=== PATIENT | female | born 1980 | race Caucasian/White ===

== ENCOUNTER 2018-11-08 20:12 | Inpatient (IN) | payer MEDICAID ==
[~2018-11-08] VITALS: Ht 157.5 cm; Wt 58.1 kg
[2018-11-08 20:21] VITALS: BP 118/72; PULSE 82; RESP 19; Ht 157.5 cm; Wt 58.1 kg
[2018-11-08] MEDS ORDERED: PREN1TAB13 PO (20:25)
[2018-11-08] MEDS ORDERED: LACTATED RINGER'S 1,000 ML IV PRN (20:39)
[2018-11-08] MEDS ORDERED: METHYLERGONOVINE 0.2 MG INJ IM PRN (21:00)
[2018-11-08] MEDS ORDERED: OXYTOCIN 30 UNITS/LR 500 ML IV PRN (21:00)
[2018-11-08] MEDS ORDERED: BUTORPHANOL 2 MG INJ IV PRN ×2 (21:00)
[2018-11-08] MEDS ORDERED: CARBOPROST 250 MCG INJ IM PRN (21:00)
[2018-11-08] MEDS ORDERED: MINERAL OIL LIGHT 10 ML VIAL TOP PRN (21:00)
[2018-11-08] MEDS ORDERED: MISOPROSTOL 200 MCG TAB PR PRN (21:00)
[2018-11-08] MEDS ORDERED: IBUPROFEN 600 MG TAB PO PRN (21:00)
[2018-11-08] MEDS ORDERED: LIDOCAINE 1% (MPF) 30 ML INJ INJ PRN (21:00)
[2018-11-08] MEDS ORDERED: OXYTOCIN 30 UNITS/LR 500 ML IV SCH ×3 (21:00→23:00)
[2018-11-08] MEDS: LACTATED RINGER'S 1,000 ML IV SCH ×2 (21:06→22:17)
--- NOTE | 2018-11-08 21:17 | TRIAGE ---
OB Triage Datetime Report Generated by CPN: 11/08/2018 21:17 Datetime: 11/08/2018 20:43 Stage of : Labor Labor Evaluation Frequency: 4-5 Monitor Mode: External Duration (sec)2399: 90-120 Quality: Moderate Pattern: Normal: <= 5 Contractions in 10 Minutes Resting Tone [place]: Relaxed Heart Rate FHR Baseline Rate: 145 Monitor Mode: External US Variability: Moderate 6-25 bpm Accelerations: 15X15 Decelerations: Early Category: Category I Comments: monitor off, pt transferred to [facility] 5 ambulatory, accompanied by Olivia Malini RN Datetime: 11/08/2018 20:35 Vaginal Exam Dilatation (cms): 4.0 Effacement (%): 60 Station: -2 Exam By: TIO CUNHA Membrane Status: Intact Vaginal Bleeding: Normal Show Cervix, Consistency: Soft Cervix, Position: Midposition Presentation 'A': Cephalic Datetime: 11/08/2018 20:30 Time of Arrival: 11/08/2018 20:06 EGA: 38.4 Arrived By: Ambulatory Arrived From: Home Chief Complaint: UC'S SINCE 1400 Movement: Present Contractions: Regular Time Contractions Began: 11/08/2018 14:00 Contractions: Q4-5MIN Rupture of Membranes: Denies Vaginal Bleeding: None Vaginal Discharge: Denies Recent Sexual Intercouse: Denies Abdominal Trauma: Not Applicable Patient Complaints: Contractions Time Provider Notified: 11/08/2018 20:39 Provider Notified: ENDY Initial Plan: VS, EFM, SVE, CALL OB Datetime: 11/08/2018 20:21 Maternal Assessment Temperature Route: Oral Pain Assessment Pain Scale: 6 Pain Presence: Intermittent Pain Type: Contraction Pain Location: Abdomen Pain Relief Measures: Comfort Measures Datetime: 11/08/2018 20:20 Stage of : OB Triage Monitor Mode: External Monitor Mode: External US Comments: MONITORS APPLIED, FHT AUDIBLE AT 145BPM
--- NOTE | 2018-11-08 21:23 | TRIAGE ---
OB Triage Datetime Report Generated by CPN: 11/08/2018 21:23 Datetime: 11/08/2018 20:46 Time of Arrival: 11/08/2018 21:00 EGA: 38.4 Arrived By: Ambulatory Datetime: 11/08/2018 20:30 EGA: 38.4 Datetime: 11/08/2018 20:21 Assessment Type: Triage Level of Consciousness: Fully Conscious DTR's/Clonus: DTRs 2+; No Clonus Headache: Denies Blurred Vision: No Respiratory Effort: Unlabored; Regular Rhythm; Equal Expansion Breath Sounds, Left: Clear and Equal Breath Sounds, Right: Clear and Equal Nausea/Vomiting: Denies RUQ Epigastric Pain: Denies Lower Extremities Edema: None Degree: None Upper Extremities Edema: None Degree: None Facial Edema: None History of Falling: (0) No Secondary Diagnosis: (0) No Ambulatory Aid: (0) Bedrest/Nurse Assist IV Therapy: (0) No Gait: (0) Normal/Bedrest/Immobile Mental Status: (0) Oriented to Own Ability Fall Score: 0 Fall Risk Score Definition: No Risk: No action required
--- NOTE | 2018-11-08 21:52 | PREAC ---
Date/Time of Note Date/Time of Note DATE: 11/08/18 TIME: 21:51 Anesthesia Eval and Record Evaluation Time Pre-Procedure Interview DATE: 11/08/18 TIME: 21:51 Age 38 Sex female NPO: 8 hrs Preoperative diagnosis IUP Planned procedure L&D Epidural Past Medical History Past Medical History: None Surgery & Anesthesia Issues No known issue Meds Anticoagulation: No Beta Petrona within 24 hr: No Reason Beta Petrona not given: Pt. not on B-Petrona Reported Medications Pnv95/Ferrous Fumarate/FA ( Vitamins Tablet) 1 Each Tablet, 1 EACH PO, TAB 11/08/18 Current Medications Lactated Ringer's 1,000 ml @ 125 mls/hr Q8H IV Last administered on 11/08/18at 21:06; Admin Dose 125 MLS/HR; Start 11/08/18 at 20:39 Butorphanol Tartrate (Stadol) 1 mg Q2H PRN IV .PAIN SCALE 1-5; Start 11/08/18 at 21:00 Butorphanol Tartrate (Stadol) 2 mg Q2H PRN IV .PAIN SCALE 6-10; Start 11/08/18 at 21:00 Lidocaine (Xylocaine 1% (Mpf)) 30 ml ONCE PRN INJ .EPISIOTOMY; Start 11/08/18 at 21:00 Oxytocin/Lactated Ringer's 500 ml @ 500 mls/hr ONCE POST IV ; Start 11/08/18 at 21:00 Oxytocin/Lactated Ringer's 500 ml @ 125 mls/hr POST IV ; Start 11/08/18 at 21:00 Ibuprofen (Motrin) 600 mg ONCE PRN PO .PAIN 1-5; Start 11/08/18 at 21:00 Lactated Ringer's 1,000 ml @ 2,000 mls/hr Q30M PRN IV .ANESTHESIA; Start 11/08/18 at 20:39 Oxytocin/Lactated Ringer's 500 ml @ 0 mls/hr ONCE PRN IV .VAGINAL BLEEDING; Start 11/08/18 at 21:00 Methylergonovine Maleate (Methergine) 0.2 mg ONCE PRN IM .VAGINAL BLEEDING; Start 11/08/18 at 21:00 Carboprost Tromethamine (Hemabate) 250 mcg ONCE PRN IM .VAGINAL BLEEDING; Start 11/08/18 at 21:00 Misoprostol (Cytotec) 1,000 mcg ONCE PRN [place] .VAGINAL BLEEDING; Start 11/08/18 at 21:00 Mineral Oil (Muri-Lube) 10 ml PRN PRN TOP DELIVERY LUBRICATION; Start 11/08/18 at 21:00 Meds reviewed: Yes Allergies Coded Allergies: No Known Drug Allergy (Verified Allergy, Unknown, 11/08/18) Allergies Reviewed: Yes Labs/Studies Labs Reviewed: Reviewed by anesthesiologist Result Diagram: 11/08/18 2100 Laboratory Tests 11/08/18 21:00 test: Positive Studies: ECG Pre-procedure Exam Last vitals Vital Signs Date Temp Pulse Resp B/P (MAP) Pulse Ox O2 O2 Flow FiO2 Time Delivery Rate 11/08/18 97.9 82 19 118/72 Room Air 20:21 (87) Airway: Adequate mouth opening, Adequate thyromental dist Mallampati: Mallampati II Teeth: Normal Lung: Normal Heart: Normal ASA Physical Status ASA physical status: 2 Emergency: None Planned Anesthetic Neuraxial: Epidural Planned Pain Management Epidural Pre-operative Attestations Prior to commencing anesthesia and surgery, the patient was re-evaluated, there was verification of: *The patient's identity *The results of appropriate recent lab work and preoperative vital signs *The above evaluation not changing prior to induction *Anesthetic plan, risk benefits, alternative and complications discussed with patient/family; questions answered; patient/family understands, accepts and wis hes to proceed. VENUS GUNTER MD November 08, 2018 21:52
[2018-11-08] MEDS ORDERED: FENTAnyl 2MCG/ML-ROPIV 0.2% 100 ML ONE (21:54)
[2018-11-08] MEDS ORDERED: ONDANSETRON 4 MG INJ IV PRN (22:00)
[2018-11-08] MEDS ORDERED: NALOXONE (0.4 MG/ML) INJ IV PRN (22:00)
[2018-11-08] MEDS ORDERED: FENTAnyl 2MCG/ML-ROPIV 0.2% 100 ML BAG EPI SCH (22:00)
[2018-11-08] MEDS ORDERED: DIPHENHYDRAMINE 50 MG INJ IV PRN (22:00)
[2018-11-09] MEDS ORDERED: OXYTOCIN 30 UNITS/LR 500 ML IV SCH (01:17)
[2018-11-09] MEDS ORDERED: LACTATED RINGER'S 1,000 ML IV* SCH (01:17)
[2018-11-09] MEDS ORDERED: LANOLIN HPA 1 PKT TOP PRN (01:30)
[2018-11-09] MEDS ORDERED: WITCH HAZEL/GLYCERIN PAD PR PRN (01:30)
[2018-11-09] MEDS ORDERED: BENZOCAINE 20% 56 ML SPRAY TOP PRN (01:30)
[2018-11-09] MEDS ORDERED: ACETAMINOPHEN 325 MG TAB PO PRN ×2 (01:30)
[2018-11-09] MEDS ORDERED: ONDANSETRON 4 MG INJ IV PRN (01:30)
[2018-11-09] MEDS ORDERED: OXYTOCIN 30 UNITS/LR 500 ML IV PRN (01:30)
[2018-11-09] MEDS ORDERED: SENNA/DOCUSATE NA (8.6MG/50MG) TAB PO PRN (01:30)
[2018-11-09] MEDS ORDERED: MAGNESIUM HYDROXIDE 30ML CUP PO PRN (01:30)
[2018-11-09] MEDS ORDERED: DIBUCAINE 1% 30 GM OINT TOP PRN (01:30)
[2018-11-09] MEDS ORDERED: CARBOPROST 250 MCG INJ IM PRN (01:30)
[2018-11-09] MEDS ORDERED: MISOPROSTOL 200 MCG TAB PR PRN (01:30)
[2018-11-09] MEDS ORDERED: METHYLERGONOVINE 0.2 MG INJ IM PRN (01:30)
[2018-11-09 02:30] VITALS: BP 109/64; PULSE 72; RESP 19
[2018-11-09 04:00] VITALS: BP 104/69; PULSE 79; RESP 19
[2018-11-09] MEDS: IBUPROFEN 600 MG TAB PO PRN ×2 (06:35→17:10)
[2018-11-09 08:00] VITALS: BP 110/69; PULSE 73; RESP 18
--- NOTE | 2018-11-09 10:51 | PN ---
Date/Time of Note Date/Time of Note DATE: 11/09/18 TIME: 10:49 OB Subjective Subjective Subjective PPD# 1 Patient is doing well. She denies nausea, vomiting, shortness of breath, chest pain, headache. She has been ambulating without difficulty, tolerating regular diet. Pain is well controlled on current medications OB Objective Objective Objective Vital Signs Date Temp Pulse Resp B/P (MAP) Pulse Ox O2 O2 Flow FiO2 Time Delivery Rate 11/09/18 98.7 79 19 104/69 Room Air 04:00 (81) General: AAO X 3, comfortable, NAD, appropriate mood and affect. ABD: +BS. Soft, non-tender. Uterus 2 cm below umbilicus Flank: No CVA tenderness (B/L) LE: Mild edema. No clubbing, cyanosis, thigh or calf tenderness (B/L). Homans 'sign is negative OB Assessment/Plan Other plan: years old 5 para 0-4-0-1 4 s/p normal vaginal delivery at 38 weeks. PPD#1 - AF, VSS - Baby is doing well, at bed side. She is bonding well - Contraception methods with R/B/A/FR discussed - Continue care STEPHANIE CHURCH November 09, 2018 10:51
--- NOTE | 2018-11-09 11:15 | LDN ---
Date/Time of Note Date/Time of Note DATE: 11/09/18 TIME: 11:12 Delivery Summary Placenta Delivered: Spontaneously (Vacuum-assisted delivery) Meconium: none Episiotomy: Yes Indication for episiotomy Category 2 heart rate tracing Laceration repair: Medial episiotomy repaired with 2-0 Vicryl suture Anesthesia type: Epidural Estimated blood loss: 200 Sponge & Needle done & correct: Yes All needle counts correct: Yes Any foreign bodies felt in the: No Delivery Information Sex Sex: female Apgars 1 Minute: 8 5 Minute: 9 Suctioning Nose & mouth suctioned at prince: Yes Delee suction performed: No Umbilical Cord Umbilical cord with: 3 Vessels Cord presentations: nuchal cord (X1 loose manually reduced) Cord Blood was obtained: Yes Mother & Baby Disposition Disposition Baby's weight 6 pounds 8 ounces/ 2935 g Mom & Baby to Maternity; Good: Yes Baby to NICU: Yes Copies To: CC: STEPHANIE CHURCH BAHAREH MD November 09, 2018 11:15
--- NOTE | 2018-11-09 11:20 | HP ---
Date/Time of Note Date/Time of Note DATE: 11/09/18 TIME: 11:20 OB - History Hx of Present Free Text/Dictation Patient is a 38-year-old 5 para 4 at 38 weeks and 4 days of gestation with estimated date of delivery November 18, 2018 She presented in active labor with regular contractions Patient reported positive movement, denies any vaginal bleeding or leaking fluid GBS status is negative Estimated Due Date: November 18, 2018 : 5 Para: 4 Past Family/Social History * Past Medical, Surgical, Family and Obstetric Histories reviewed from chart. OB Admission Exam Vital Signs Vital Signs Vital Signs Date Temp Pulse Resp B/P (MAP) Pulse Ox O2 O2 Flow FiO2 Time Delivery Rate 11/09/18 98.7 79 19 104/69 Room Air 04:00 (81) Physical Exam HEENT: WNL Heart: Rhythm Normal Lungs: Clear, Equal Abdomen: WNL Extremities: Normal Reflexes: Normal Cervical Dilatation: 4cm Effacement: 75% Station: -1 Membranes: Intact Heart Rate: 140's Accelerations: Accelerations Present Decelerations: No Decelerations Varibility: Moderate Contractions on Admission: < 5 Minutes Apart Intensity: Moderate Last 72 hours Lab Results CBC & BMP 11/08/18 21:00 11/09/18 08:25 PROCEDURE: US OB. CLINICAL INDICATION: Size and dates TECHNIQUE: Multiple sonographic images of the pelvis and gravid uterus were obtained. The images were reviewed on a PACS workstation. COMPARISON: No prior studies are available for comparison. FINDINGS: There is a single live intrauterine gestation. Cardiac activity is present with 150 beats per minute. There is a vertex presentation. The placenta is posterior fundal. There is no evidence of placental abruption. EVE = 15.6 cm. Measurements: BPD = 8.7 cm, 35 weeks and 0 days HC = 32.1 cm, 36 weeks and 2 days AC = 34.1 cm, 38 weeks and 0 days FL = 7.1 cm, 36 weeks and 3 days Gestational Age: AUA estimated gestational age: 36 weeks 3 days LMP estimated gestational age: 38 weeks 4 days AUA estimated date of delivery: 12/03/18 The EFW = 3107 g, 28%ile based on LMP age. RPTAT: AA IMPRESSION: Single live intrauterine gestation of 36 weeks 3 days by ultrasound criteria. .Eric Cevallos MD, MD Date Time Electronically viewed and signed by .Eric Cevallos MD, MD on 11/08/2018 21:36 .S/ CC: MICHEAL SCHUMACHER MD [id number] PROCEDURE: US OB biophysical profile. CLINICAL INDICATION: LABOR, WELLBEING TECHNIQUE: Multiple sonographic images of the pelvis were obtained. The images were reviewed on a PACS workstation. COMPARISON: 11/08/2018 FINDINGS: There is a live intrauterine gestation. There is a normal amount of amniotic fluid with an EVE = 15.6 cm. Cardiac activity is present with 150 beats per minute. There is a vertex presentation. The placenta is fundal. Biophysical profile: movement 2/2 tone 2/2. breathing 2/2 EVE 2/2 Total 8/8 IMPRESSION: Normal biophysical profile. RPTAT:HCLE Physician Cliff Date Time Electronically viewed and signed by Physician Cliff on 11/08/2018 23:04 cE/ CC: MICHEAL SCHUMACHER MD [phone] OB Assessment/Plan Reason for admission: active labor Plan: Expectant Management Other plan: Admit to labor and delivery Pain meds as needed Copies To: CC: STEPHANIE CHURCH ; MICHEAL SCHUMACHER MD November 09, 2018 11:20
[2018-11-09 12:00] VITALS: BP 110/70; PULSE 77; RESP 18
[2018-11-09] MEDS: LACTATED RINGER'S 1,000 ML IV SCH (12:39)
[2018-11-09 15:40] VITALS: BP 106/62; PULSE 71; RESP 20
[2018-11-09 20:20] VITALS: BP 90/54; PULSE 76; RESP 19
[2018-11-10 04:00] VITALS: BP 96/59; PULSE 77; RESP 19
[2018-11-10 07:47] VITALS: BP 97/49; PULSE 75; RESP 18
[2018-11-10] MEDS ORDERED: PROVENTIL HFA 6.7GM INHALER ONE (07:59)
--- NOTE | 2018-11-10 16:09 | DS ---
Date/Time of Note Date/Time of Note DATE: 11/10/18 TIME: 16:07 Obstetrical Discharge Record Final Diagnosis Final Diagnosis: Term delivered Other Final Diagnosis day #2 Status post Patient stable and afebrile Vital signs stable Hematology - 72 Hrs Test 11/08/18 21:00 11/09/18 08:25 Hematocrit 40.0 % (37.0-47.0) 38.8 % (37.0-47.0) Hemoglobin 13.6 g/dl (12.0-16.0) 13.2 g/dl (12.0-16.0) Mean Corpuscular 30.4 pg (29.0-33.0) 30.1 pg (29.0-33.0) Hemoglobin Mean Corpuscular 34.0 g/dl (32.0-37.0) 34.0 g/dl (32.0-37.0) Hemoglobin Concent Mean Corpuscular Volume 89.3 fl (82.0-101.0) 88.6 fl (82.0-101.0) Mean Platelet Volume 12.2 fl (7.4-10.4) #H 12.1 fl (7.4-10.4) H Platelet Count 175 10^3/UL (140-415) 164 10^3/UL (140-415) Red Blood Count 4.48 10^6/ul (4.20-5.40) 4.38 10^6/ul (4.20-5.40) Red Cell Distribution 13.3 % (11.5-14.5) 13.4 % (11.5-14.5) Width White Blood Count 7.8 10^3/ul (4.8-10.8) # 11.9 10^3/ul (4.8-10.8) #H Abdomen soft, fundus firm Perineum intact Extremities nontender Assessment and plan Patient stable and doing well Plan to discharge home Prescription for Motrin and Colace was given Patient instructed to follow-up with her own [facility]ATTR[facility] RENOVATOR in 2 and 6 weeks Vaginal Delivery Obstetrical Delivery: Episiotomy, Repaired, Vacuum Extraction Condition on Discharge Physical Assessment Last Vitals: VS - Last 72 Hours, by Label Date Temp Pulse Resp B/P (MAP) Pulse Ox O2 O2 Flow FiO2 Time Delivery Rate 11/10/18 98.0 75 18 97/49 (65) Room Air 07:47 11/10/18 97.9 77 19 96/59 (71) 04:00 11/09/18 98.1 76 19 90/54 (66) 20:20 11/09/18 98.4 71 20 106/62 15:40 (77) 11/09/18 97.4 77 18 110/70 Room Air 12:00 (83) 11/09/18 98.0 73 18 110/69 Room Air 08:00 (83) 11/09/18 98.7 79 19 104/69 Room Air 04:00 (81) 11/09/18 98.0 72 19 109/64 Room Air 02:30 (79) 11/08/18 97.9 82 19 118/72 Room Air 20:21 (87) Voiding: Yes Bowel Movement: Yes Breast: Soft, non-tender Fundus: Firm Calf Tenderness: No Patient Condition: Good Copies To: CC: STEPHANIE CHURCH BAHAREH MD November 10, 2018 16:09
--- NOTE | 2018-11-11 11:14 | PAC ---
Date/Time of Note Date/Time of Note DATE: 11/11/18 TIME: 11:13 Post-Anesthesia Notes Post-Anesthesia Note Last documented vital signs Vital Signs Date Temp Pulse Resp B/P (MAP) Pulse Ox O2 O2 Flow FiO2 Time Delivery Rate 11/10/18 98.0 75 18 97/49 (65) Room Air 07:47 Activity: WNL Respiratory function: WNL Cardiovascular function: WNL Mental status: Baseline Pain reasonably controlled: Yes Hydration appropriate: Yes Nausea/Vomiting absent: Yes Comments BP:120/56, P:78, Spo2:100%, T:98,9 VENUS GUNTER MD November 11, 2018 11:14
--- NOTE | 2018-11-11 15:37 | DELSUM ---
Delivery Summary A-C Datetime Report Generated by CPN: 11/11/2018 15:37 DELIVERY PERSONNEL [employer] Operator: Arias, Olivia MATERNAL INFORMATION Delivery Anesthesia: Epidural Medications in Delivery: 30 UNITS OF PITOCIN Delivery QBL (ml): 200 Placenta Cultured: No Maternal Complications: None LABOR SUMMARY EDC: 11/18/2018 00:00 No. Babies in Womb: 1 Attempted: No Labor Anesthesia: Epidural LABOR INFORMATION Onset of Labor: 11/08/2018 14:00 Complete Dilatation: 11/08/2018 22:40 Oxytocin: Augmentation Group B Beta Strep: Negative Steroids Given: None Reason Steroids Not Administered: Not Applicable MEMBRANES Membranes Rupture Method: Artificial Rupture of Membranes: 11/08/2018 22:30 Length of Rupture (hr): 1.03 Amniotic Fluid Color: Clear Amniotic Fluid Amount: Moderate Amniotic Fluid Odor: None STAGES OF LABOR Stage 1 hr: 8 Stage 1 min: 40 Stage 2 hr: 0 Stage 2 min: 52 Stage 3 hr: 0 Stage 3 min: 0 Total Time in Labor hr: 9 Total Time in Labor min: 32 VAGINAL DELIVERY Episiotomy: Median Laceration Repair: Not Applicable Initial Vag Sponge Count: 10 Final Vag Sponge Count: 10 Initial Vag Sharps Count: 1+2 Final Vag Sharps Count: 3 Sponge Count Correct: Yes; Vaginal Sweep Performed Sharps Count Correct: Yes BABY A INFORMATION Infant Delivery Date/Time: 11/08/2018 23:32 Method of Delivery: Vaginal Born in Route : No : N/A Forceps: N/A Vacuum Extraction: Successful Shoulder Dystocia : No ASSISTED DELIVERY BABY A Indication for Assisted Delivery: DECELS, BABY NOT DECENDING Station Vacuum/Forcep Apply: 0 Position Vacuum/Forcep Apply: Left Occipital Posterior Vacuum Number of Pulls: 2 Vacuum Number of PopOffs: 0 Reduce Pressure btwn Ctx: Yes Total Time Vacuum Applied: 20 SHOULDER DYSTOCIA BABY A Infant Delivery Date/Time: 11/08/2018 23:32 PRESENTATION/POSITION BABY A Presentation: Cephalic Cephalic Presentation: Vertex Vertex Position: Left Occipital Posterior Breech Presentation: N/A PLACENTA INFORMATION BABY A Placenta Delivery Time : 11/08/2018 23:32 Placenta Method of Delivery: Spontaneous Placenta Status: Delivered SCORES BABY A Heart Rate 1 min: >100 bpm Resp Effort 1 min: Good Cry Reflex Irritability 1 min: Cough/Sneeze/Pulls Away Muscle Tone 1 min: Some Flexion of Extrem Color 1 min: Body Hecker, Extremit Blue Resuscitation Effort 1 min: Tactile Stimulation; Oxygen; PPV/NCPAP SCORE 1 MIN: 8 Heart Rate 5 min: >100 bpm Resp Effort 5 min: Good Cry Reflex Irritability 5 min: Cough/Sneeze/Pulls Away Muscle Tone 5 min: Active Motion Color 5 min: Body Hecker, Extremit Blue Resuscitation Effort 5 min: Tactile Stimulation; Oxygen SCORE 5 MIN: 9 INFANT INFORMATION BABY A Gestational Age at Delivery: 38.4 Gestational Status: Early Term- 37- 38.6 Weeks Infant Outcome : Liveborn Infant Condition : Stable Sex: Female IDENTIFICATION/MEDS BABY A ID Band Number: [id number] ID Band Location: Right Leg; Left Arm Sensor Applied: Yes Sensor Number: [id number] Sensor Location : Cord Clamp Vitamin K Given : Not Given Erythromycin Given: Not Given WEIGHT/LENGTH BABY A Infant Birthweight (gm): 2935 Infant Weight (lb): 6 Weight (oz): 8 Infant Length (in): 18.50 Length (cm): 46.99 CORD INFORMATION BABY A No. Cord Vessels: 3 Nuchal Cord : Around Neck x1, Loose Cord Blood Taken: Yes Infant Suction: Mouth; Nose ASSESSMENT BABY A Complications: Decreased Variability; Multiple Variable Decels Physical Findings at Delivery: Within Normal Limits Respirations: Appears Normal Press Feeder [place]/ALS Called : No Care By: Sony Fay RN Transferred To: Remains with Mother
== END 2018-11-10 14:55 | disposition home or self-care (01) | DRG 807 ==
LOC: L-D 20:12 → OBT 20:12 → L-D 20:39 → OBT 20:39 → PP1 11-09 02:21
PROVIDERS: ADMIT Obstetrics & Gynecology; ATTEND Obstetrics & Gynecology
PROC: 4A1HXCZ Monitoring of Products of Conception, Cardiac Rate, External Approach (ICD-10-PCS; 2018-11-08)
PROC: 10D07Z6 Extraction of Products of Conception, Vacuum, Via Natural or Artificial Opening (ICD-10-PCS; principal; 2018-11-09)
PROC: 0W8NXZZ Division of Female Perineum, External Approach (ICD-10-PCS; 2018-11-09)
DX: O69.81X0 Labor and delivery complicated by cord around neck, without compression, not applicable or unspecified (principal); Z37.0 Single live birth; O36.8330 Maternal care for abnormalities of the fetal heart rate or rhythm, third trimester, not applicable or unspecified; Z3A.38 38 weeks gestation of pregnancy
CPT/HCPCS: 62322; 76815; 76818; 85025; 85610; 85730; 86592; 86850; 86900; 86901; 99464; G0463; J2590; J3010; J7120